=== PATIENT | female | born 1995 | race Caucasian/White ===

== ENCOUNTER 2016-10-10 10:28 | Emergency (ER) | payer BC, OTHER ==
[~2016-10-10] VITALS: Ht 160 cm; Wt 53.2 kg
[2016-10-10] MEDS ORDERED: NS 1,000 ML IV ONE (11:30)
[2016-10-10] MEDS ORDERED: KETOROLAC 30 MG/ML VIAL (J1885) IV ONE (11:30)
[2016-10-10 11:49] LABS: CONTROL LINE UCG INT CTR LINE PRESENT
[2016-10-10 11:49] LABS: BASO % 0.4 % (0.0-1.0); EOS % 0.9 % (0.0-3.0); LARGE UNSTAINED CELL # 0.1 K/mm3 (0.0-0.4); LARGE UNSTAINED CELL % 2.3 % (0.0-4.0); LYMPH # 1.8 K/mm3 (1.5-6.5); LYMPH % 34.5 % (24.0-44.0); MEAN CORPUSCULAR HEMOGLOBIN 30.7 pg (27.0-33.0); MEAN CORPUSCULAR HGB CONC 35.1 g/dl (32.0-36.5); MEAN CORPUSCULAR VOLUME 87.4 fl (80.0-96.0); MONO # 0.4 K/mm3 (0.0-0.8); MONO % 6.9 % (0.0-5.0); NEUTROPHILS # 2.9 K/mm3 (1.8-7.7); PLATELET COUNT, AUTOMATED 270 k/mm3 (150-450); RED CELL DISTRIBUTION WIDTH 12.3 % (11.5-14.5); WHITE BLOOD COUNT 5.3 K/mm3 (4.0-10.0)
[2016-10-10 12:14] LABS: ANION GAP 6 MEQ/L (8-16); BLOOD UREA NITROGEN 13 MG/DL (7-18); CALCIUM LEVEL 9.1 MG/DL (8.5-10.1); CARBON DIOXIDE LEVEL 27 MEQ/L (21-32); CHLORIDE LEVEL 108 MEQ/L (98-107); CREATININE FOR GFR 0.75 MG/DL (0.55-1.02); GLUCOSE, FASTING 80 MG/DL (70-105); SODIUM LEVEL 141 MEQ/L (136-145)
--- NOTE | 2016-10-10 12:19 | REP ---
Clinical: Bilateral flank pain. Comparison: None. Findings: Evaluation is limited by paucity of intraperitoneal fat and lack of contrast. The kidneys demonstrate mild medullary nephrocalcinosis and 2 mm nonobstructing left renal calculus as well as possible forming calculi in the right renal pelvis. There is no perinephric stranding, hydroureteronephrosis or definite obstructing ureteral calculi. However, a small 1 mm calcification in the region of the presumed left ureterovesicle junction (image 122) may represent ureteral calculus versus phlebolith. Correlation with urinalysis and physical examination recommended. The bladder is collapsed and otherwise normal. Liver, spleen, pancreas, and bilateral adrenal glands are normal. Layering sludge/gravel in the gallbladder cannot be excluded without CT evidence for acute cholecystitis. The enteric system is without obstruction or obvious acute inflammatory process. The appendix is identified in the right lower quadrant and measures 7 mm maximal diameter along with small appendicolith. Correlation is recommended to exclude early acute appendicitis. Pelvis demonstrates collapsed bladder as described above and age-appropriate uterus/adnexa. No significant pelvic fluid or ascites. No free air. No obvious adenopathy. Abdominal aorta without aneurysm. Musculoskeletal structures are intact. Impression: 1. Kidneys demonstrate mild medullary nephrocalcinosis and 2 mm nonobstructing left renal calculus. A punctate 1 mm calculus in the left ureterovesical junction versus phlebolith cannot be differentiated and may warrant physical examination and correlation with urinalysis. 2. The appendix is borderline dilated and includes small appendicolith. Findings are nonspecific and require correlation to exclude early appendicitis. Signed by Flavio Ward MD 10/10/2016 12:10 P
[2016-10-10 13:31] VITALS: BP 88/55
[2016-10-10] MEDS ORDERED: PYRI1TAB5 PO (13:49)
[2016-10-10] MEDS ORDERED: FLOM5CAP PO (13:49)
[2016-10-10] MEDS ORDERED: KETO10TAB PO (13:49)
[2016-10-10] MEDS ORDERED: KEFL500C17 PO (13:49)
== END 2016-10-10 14:03 | disposition home or self-care (01) ==
LOC: M ED 10:28
DX: K35.3 Acute appendicitis with localized peritonitis (principal)
CPT/HCPCS: 74176; 80048; 81001; 84703; 85025; 87086; 96374; 99283; J1885

== ENCOUNTER → 2016-10-19 | Outpatient (REF) | payer BC ==
[~2016-10-19] MED LIST: FLOM5CAP PO; KEFL500C17 PO; KETO10TAB PO; PYRI1TAB5 PO
== END ==
LOC: M SMT 12:58
PROVIDERS: ATTEND Nurse Practitioner Women's Health
DX: N20.0 Calculus of kidney (principal)

== ENCOUNTER → 2016-10-21 | Outpatient (CLI) | payer BC ==
--- NOTE | 2016-10-21 08:44 | REP ---
Abdominal right upper quadrant ultrasound: Comparison is the CT of the abdomen pelvis dated 10/10/2016. There is a small volume of biliary sludge in the gallbladder. There is no cholelithiasis, gallbladder wall thickening or pericholecystic fluid. There is mild tenderness to transducer pressure. There is no intrahepatic or extrahepatic biliary duct dilatation. The common duct measures 3.1 mm in diameter. The hepatic parenchyma is homogeneous and unremarkable. The visualized portion of the pancreatic head is unremarkable. The body and tail are obscured by bowel gas. There are no right renal calculi identified by ultrasound. There is no hydronephrosis. There are no right renal masses or cysts. Right kidney is normal size measuring 10.4 cm craniocaudad length. Impression: Biliary sludge in the gallbladder. No cholelithiasis or biliary duct dilatation. No right renal calculi are identified by ultrasound. There is no hydronephrosis. There is mild tenderness to transducer pressure. Signed by Alfonzo Kendall MD 10/21/2016 08:36 A
== END ==
LOC: M RAD 07:14
PROVIDERS: ATTEND Nurse Practitioner Women's Health
DX: K82.9 Disease of gallbladder, unspecified (principal); R10.11 Right upper quadrant pain; R11.0 Nausea

== ENCOUNTER → 2016-11-15 | Outpatient (CLI) | payer BC ==
--- NOTE | 2016-11-15 10:34 | REP ---
HIDA SCAN WITH GALLBLADDER EJECTION FRACTION: Following the intravenous administration of 6.6 mCi of technetium-99m mebrofenin, multiple images of the right upper quadrant are performed every 5 minutes for a period of 1 hour. Gallbladder is visualized at 10 minutes post injection and there is biliary to bowel transit at 15 minutes post injection with no scintigraphic evidence of cholecystitis. At the 1 hour donell 8 ounces of Ensure Enlive was ingested and further imaging performed for 1 hour. Gallbladder activity is measured and the gallbladder ejection fraction is calculated to be 65% which is normal. IMPRESSION: Normal gallbladder ejection fraction. Signed by Alfonzo Sky MD 11/15/2016 12:52 P
== END ==
LOC: M RAD 07:25
PROVIDERS: ATTEND Surgery
DX: R10.13 Epigastric pain (principal)
CPT/HCPCS: 78227; A9537; J2805

== ENCOUNTER 2017-10-07 21:05 | Emergency (ER) | payer BC, SELFPAY ==
[2017-10-07 22:09] LABS: KETONE, URINE AUTO RFX NEGATIVE (NEGATIVE); LEUKOCYTE ESTERASE UR AUTO RFX NEGATIVE (NEGATIVE); MUCUS, URINE RFX LARGE (NEGATIVE); NITRITE, URINE AUTO RFX NEGATIVE (NEGATIVE); RBC, URINE AUTO RFX 2 /HPF (0-3); SPECIFIC GRAVITY UR AUTO RFX 1.016 (1.002-1.035); SQUAM EPITHELIAL CELL UR AURFX 1 /HPF (0-6); WBC, URINE AUTO RFX 2 /HPF (0-3)
[2017-10-07] MEDS: ONDANSETRON 4 MG ORAL DISINTEGRATING TAB (Q0162 PER 1MG) PO (23:30)
[2017-10-07] MEDS: KETOROLAC TROMETHAMINE 10 MG TAB PO (23:30)
[2017-10-08 00:32] LABS: BASO % 0.6 % (0.0-1.0); EOS # 0.1 10^3/uL (0.0-0.50); HEMATOCRIT 42.1 % (36.0-47.0); HEMOGLOBIN 14.4 g/dl (12.0-15.5); IMMATURE GRANULOCYTE % 0.3 % (0-3.0); LYMPH # 2.9 10^3/uL (1.5-6.5); MEAN CORPUSCULAR HEMOGLOBIN 29.8 pg (27.0-33.0); MEAN CORPUSCULAR HGB CONC 34.2 g/dl (32.0-36.5); MONO # 0.7 10^3/uL (0.0-0.8); MONO % 10.8 % (0.0-5.0); NEUTROPHILS % 44.3 % (36.0-66.0); PLATELET COUNT, AUTOMATED 304 10^3/uL (150-450); RED BLOOD COUNT 4.84 10^6/uL (4.00-5.40); RED CELL DISTRIBUTION WIDTH 12.3 % (11.5-14.5); WHITE BLOOD COUNT 6.7 10^3/uL (4.0-10.0)
[2017-10-08 01:04] LABS: ALKALINE PHOSPHATASE 72 U/L (45-117); ALT/SGPT 20 U/L (12-78); ANION GAP 7 MEQ/L (8-16); AST/SGOT 14 U/L (7-37); BILIRUBIN,DIRECT 0.2 MG/DL (0.0-0.2); BILIRUBIN,TOTAL 0.7 MG/DL (0.2-1.0); BLOOD UREA NITROGEN 10 MG/DL (7-18); CALCIUM LEVEL 9.3 MG/DL (8.5-10.1); CARBON DIOXIDE LEVEL 28 MEQ/L (21-32); CHLORIDE LEVEL 108 MEQ/L (98-107); CREATININE FOR GFR 0.82 MG/DL (0.55-1.30); GLOMERULAR FILTRATION RATE > 60.0 (>60); GLUCOSE, FASTING 83 MG/DL (70-100); POTASSIUM SERUM 3.8 MEQ/L (3.5-5.1); SODIUM LEVEL 143 MEQ/L (136-145); TOTAL PROTEIN 7.7 GM/DL (6.4-8.2)
[2017-10-08 01:05] LABS: ALBUMIN 4.6 GM/DL (3.2-5.2); ALBUMIN/GLOBULIN RATIO 1.48 (1.00-1.93)
== END 2017-10-08 01:47 | disposition home or self-care (01) ==
LOC: M ED 10-08 01:47
DX: M54.9 Dorsalgia, unspecified (principal); N20.0 Calculus of kidney; R51 Headache; J45.909 Unspecified asthma, uncomplicated; Z87.442 Personal history of urinary calculi; Z79.3 Long term (current) use of hormonal contraceptives; F12.10 Cannabis abuse, uncomplicated
CPT/HCPCS: Q0162

== ENCOUNTER → 2018-03-19 | Outpatient (CLI) | payer BC ==
[~2018-03-19] MED LIST changes: +DEPO150I IM; +FLOM0.4C39 PO; -FLOM5CAP PO
--- NOTE | 2018-03-19 12:31 | REP ---
REASON: Pain after trauma. COMPARISON: None. FINDINGS: No acute fracture or destructive osseous lesion. Electronically Signed by Philip Hogue DO 03/19/2018 12:20 P
--- NOTE | 2018-03-19 12:31 | REP ---
REASON: Pain after trauma. COMPARISON: None. FINDINGS: Five views of the lumbosacral spine show no acute fracture, dislocation or subluxation. The intervertebral disc spaces are symmetric and well maintained. There is no spondylolysis or spondylolisthesis. The pedicles are intact bilaterally and there is no destructive osseous lesion. IMPRESSION: Unremarkable lumbosacral spine series. Electronically Signed by Philip Hogue DO 03/19/2018 12:20 P
== END ==
LOC: M WUC 10:40
PROVIDERS: ATTEND Physician Assistant
DX: S30.0XXA Contusion of lower back and pelvis, initial encounter (principal); X58.XXXA Exposure to other specified factors, initial encounter; Y92.9 Unspecified place or not applicable

== ENCOUNTER → 2018-05-11 | Outpatient (REF) | payer BC ==
[2018-05-11 14:58] LABS: CHLAMYDIA DNA AMPLIFICATION NEGATIVE (NEGATIVE); GC DNA AMPLIFICATION NEGATIVE (NEGATIVE)
[2018-05-12 13:51] LABS: HIV 1&2 SCREEN CENTAUR NEGATIVE (NEGATIVE)
[2018-06-15 15:52] LABS: HPV HYBRID CAPTURE II Positive (Negative)
== END ==
LOC: M SFHCWAGY 08:42
PROVIDERS: ATTEND Nurse Practitioner Women's Health
DX: Z11.3 Encounter for screening for infections with a predominantly sexual mode of transmission (principal); Z11.4 Encounter for screening for human immunodeficiency virus [HIV]; Z12.4 Encounter for screening for malignant neoplasm of cervix
CPT/HCPCS: 36415; 86780; 87389; 87491; 87591; 87624; G0123

== ENCOUNTER → 2018-06-12 | Outpatient (REF) | payer BC ==
[2018-06-12 17:41] LABS: CHLAMYDIA DNA AMPLIFICATION NEGATIVE (NEGATIVE); GC DNA AMPLIFICATION NEGATIVE (NEGATIVE)
== END ==
LOC: M SFHCWAGY 13:47
PROVIDERS: ATTEND Nurse Practitioner Women's Health
DX: R87.611 Atypical squamous cells cannot exclude high grade squamous intraepithelial lesion on cytologic smear of cervix (ASC-H) (principal); Z11.3 Encounter for screening for infections with a predominantly sexual mode of transmission

== ENCOUNTER 2018-07-05 14:25 | Emergency (ER) | payer OTHER, BC ==
[~2018-07-05] VITALS: Ht 162.6 cm; Wt 55.0 kg
[2018-07-05 16:29] VITALS: BP 111/68
--- NOTE | 2018-07-10 12:05 | REP ---
Head CT without contrast: Repeat dictation. History: Headache. Preliminary report is provided at the time examination by Dr. Greene. Comparison study: Comparison brain MRI study is from February 09, 2013. CT findings: Bone window settings demonstrate an intact bony calvarium. There is no evidence of skull fracture or incidental bony calvarial lesion. The visualized paranasal sinuses appear clear. No intraorbital abnormality is seen. On soft tissue window setting images; the lateral, third, and fourth ventricles are normal in size and position. Sky-white differentiation pattern is normal above and below the tentorium. There are is no evidence of intracranial hemorrhage. No mass, edema, infarction, or midline shift is seen. No extra-axial fluid collection is appreciated. Impression: Negative noncontrast head CT. Electronically Signed by Rosalio Jimenez MD 07/10/2018 11:55 A
== END 2018-07-05 16:33 | disposition home or self-care (01) ==
LOC: M ED 14:25
DX: S09.90XA Unspecified injury of head, initial encounter (principal); W22.09XA Striking against other stationary object, initial encounter; Y92.59 Other trade areas as the place of occurrence of the external cause; Y99.0 Civilian activity done for income or pay; Z79.3 Long term (current) use of hormonal contraceptives

== ENCOUNTER → 2018-07-05 | Outpatient (REF) | payer BC ==
[2018-07-05 18:24] LABS: APPEARANCE, URINE CLEAR (CLEAR); BACTERIA, URINE AUTO NEGATIVE (NEGATIVE); BILIRUBIN, URINE AUTO NEGATIVE (NEGATIVE); BLOOD, URINE BLOOD NEGATIVE (NEGATIVE); COLOR, URINE YELLOW (YELLOW); GLUCOSE, URINE (UA) AUTO NEGATIVE (NEGATIVE); KETONE, URINE AUTO NEGATIVE (NEGATIVE); LEUKOCYTE ESTERASE, URINE AUTO NEGATIVE (NEGATIVE); MUCUS, URINE SMALL (NEGATIVE); NITRITE, URINE AUTO NEGATIVE (NEGATIVE); PROTEIN, URINE AUTO NEGATIVE (NEGATIVE); RBC, URINE AUTO 2 /HPF (0-3); SPECIFIC GRAVITY URINE AUTO 1.017 (1.002-1.035); SQUAMOUS EPITHELIAL CELL UR AU 4 /HPF (0-6); UROBILINOGEN, URINE AUTO 0.2 mg/dL (0.0-2.0); WBC, URINE AUTO 1 /HPF (0-3)
== END ==
LOC: M LAB REF 16:42
PROVIDERS: ATTEND Nurse Practitioner Women's Health
DX: N94.12 Deep dyspareunia (principal)

== ENCOUNTER → 2018-08-02 | Outpatient (CLI) | payer BC ==
[~2018-08-02] MED LIST changes: +MYRB25TA PO
--- NOTE | 2018-08-03 02:28 | REP ---
Clinical: Pelvic/perineal pain and dyspareunia . Technique: Transabdominal pelvic ultrasound followed by transvaginal examination for better evaluation of the endometrium and adnexa with color Doppler evaluation of the ovaries. Findings: Bladder is unremarkable and measures 5.6 x 2.2 x 7.5 cm . Heterogeneous retroverted uterus measures 6.7 x 3.6 x 4.2 centimeters. The endometrial complex measures 6.8 mm thickness and a small amount of endocervical fluid is noted. No discrete uterine or endometrial abnormalities are appreciated. Bilateral ovaries are normal in appearance and vascularity without evidence for torsion. Right ovary measures 3.7 x 2.5 x 1.8 cm ; R I = 0.52 . Left ovary measures 3.0 x 1.6 x 2.7 cm ; R I = 0.61 . Trace free fluid is nonspecific and likely physiologic. No pelvic mass lesion identified. . Impression: 1. Small amount of endocervical fluid and pelvic free fluid are nonspecific and likely physiologic. Electronically Signed by Flavio Ward MD 08/03/2018 02:20 A
== END ==
LOC: M RAD 11:33
PROVIDERS: ATTEND Nurse Practitioner Women's Health
DX: R10.2 Pelvic and perineal pain (principal); N94.12 Deep dyspareunia

== ENCOUNTER 2018-08-10 08:19 | Day surgery (SDC) | payer BC ==
[~2018-08-10] VITALS: Ht 160 cm; Wt 53.1 kg
[~2018-08-10 08:19] MED LIST changes: +LIDOCAINE 1% MDV 20ML VIAL SQ PRN; +LR 1,000 ML IV ONE; +ceFAZolin SOD 1 GM in D5W MINI-BAG PLUS 50 ML IV ONE
[2018-08-10 09:15] LABS: HCG, SERUM QUALITATIVE NEGATIVE (NEGATIVE)
[2018-08-10] MEDS ORDERED: PROPOFOL 200 MG/20 ML VIAL As Ordered ONE ×2 (10:11→11:52)
[2018-08-10] MEDS ORDERED: LIDOCAINE 2% INJ 100 MG/5 ML SDV (FOR ANES.) As Ordered ONE (10:11)
[2018-08-10] MEDS ORDERED: MIDAZOLAM INJ 2 MG/2 ML VIAL (J2250) As Ordered ONE (10:11)
[2018-08-10] MEDS ORDERED: fentaNYL 100 MCG/2 ML INJECTION (J3010) As Ordered ONE (10:11)
[2018-08-10] MEDS ORDERED: SCOPOLAMINE 1MG TRANSDERMAL PATCH As Ordered ONE (10:19)
[2018-08-10] MEDS ORDERED: SCOPOLAMINE 1MG TRANSDERMAL PATCH TOP ONE (10:30)
[2018-08-10] MEDS ORDERED: dexameTHASONE 4 MG/ML 1ML VIAL (J1100) As Ordered ONE (10:38)
[2018-08-10] MEDS ORDERED: ONDANSETRON 4MG/2ML VIAL (J2405) As Ordered ONE (10:38)
[2018-08-10] MEDS ORDERED: NORCO, ANEXSIA 5/325MG TABLET (HYDROcodone/ACETAMINOPHEN) As Ordered ONE (13:34)
--- NOTE | 2018-08-10 13:40 | RO ---
DATE OF PROCEDURE: 08/10/2018 PREOPERATIVE DIAGNOSIS/INDICATION FOR SURGERY: Pain, incontinence, small bladder. 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 PROCEDURE: Cystourethroscopy with hydrodistention. SURGEON: Karen Hernandez MD PODIATRY ASSISTANT: ANESTHESIA: Monitored anesthesia care (MAC). ESTIMATED BLOOD LOSS: None. BRIEF DESCRIPTION OF PROCEDURE AND FINDINGS: Kimberlee was brought to the operating room where sufficient MAC anesthesia was given. She was prepped, draped and positioned in the usual sterile fashion with the cystoscope placed and even before we had used any fluid at all, the first pictures we had not distended the patient, we had not given her any fluid yet, and there was lacy hypervascularity of the bladder and visual appearance consistent with lack of the glycosaminoglycan (GAG) layer. I did not see any Hunner's lesions, but there is really no where on her bladder that does not have this hypervascularity. We went ahead and placed some fluid, and were hydrodistending and when we got to 400 mL, she stopped filling with the gravity fed hydrodistention, and as you can see in the operative pictures there is evidence of some scar tissue in the outer layers of the bladder at 400 mL. She did have normal jets of urine. This is not a surprise in this otherwise healthy 23-year-old, but we went ahead and decided to do 4 minutes of distention at 400 mL and at approximately 2-1/2 minutes, a little bit over into this, the patient had detrusor overactivity and was leaking wholesale around the scope and we did fill a little bit more after she had emptied with that to try to counter that loss and try to maintain some hydrodistention for some benefit for the patient. After the 4 minutes passed we emptied the bladder. As expected she had microhemorrhages with the distention, but nothing untoward, and the procedure was then ended. ESTIMATED BLOOD LOSS FOR PROCEDURES: Really nothing to measure. FLUID REPLACEMENT: Crystalloid. COMPLICATIONS: None. CONDITION AND DISPOSITION: Kimberlee tolerated the procedure well and was recovering in the recovery room in good condition.
[2018-08-10] MEDS ORDERED: ONDANSETRON 4MG/2ML VIAL (J2405) IV PRN (14:00)
[2018-08-10] MEDS ORDERED: NORCO, ANEXSIA 5/325MG TABLET (HYDROcodone/ACETAMINOPHEN) PO PRN (14:00)
[2018-08-10] MEDS ORDERED: LR 1,000 ML IV SCH (14:00)
[2018-08-10 14:10] VITALS: BP 102/60
== END 2018-08-10 14:20 | disposition home or self-care (01) ==
LOC: M SDC 08:19
PROVIDERS: ATTEND Obstetrics & Gynecology
DX: N30.10 Interstitial cystitis (chronic) without hematuria (principal); N32.81 Overactive bladder; F41.9 Anxiety disorder, unspecified; F32.9 Major depressive disorder, single episode, unspecified; J45.909 Unspecified asthma, uncomplicated; Z79.899 Other long term (current) drug therapy
CPT/HCPCS: 36415; 52260; 84703; J0690; J1100; J2250; J2405; J3010

== ENCOUNTER 2018-11-02 05:37 | Day surgery (SDC) | payer BC ==
[~2018-11-02] VITALS: Ht 162.6 cm; Wt 58.9 kg
[~2018-11-02 05:37] MED LIST changes: -LIDOCAINE 1% MDV 20ML VIAL SQ PRN; -LR 1,000 ML IV ONE; +MIRT1TAB16 PO; -ceFAZolin SOD 1 GM in D5W MINI-BAG PLUS 50 ML IV ONE
[2018-11-02] MEDS ORDERED: LR 1,000 ML IV ONE (06:00)
[2018-11-02] MEDS ORDERED: LIDOCAINE 1% MDV 20ML VIAL SQ PRN (06:00)
[2018-11-02 06:09] LABS: URINE PREG TEST NEGATIVE (NEGATIVE)
[2018-11-02] MEDS ORDERED: ePHEDrine SULFATE 25 MG/5 ML(5MG/ML) SYRINGE As Ordered ONE (07:51)
[2018-11-02] MEDS ORDERED: LIDOCAINE 2% INJ 100 MG/5 ML SDV (FOR ANES.) As Ordered ONE (07:51)
[2018-11-02] MEDS ORDERED: PROPOFOL 200 MG/20 ML VIAL As Ordered ONE (07:51)
[2018-11-02] MEDS ORDERED: fentaNYL 250 MCG/5 ML INJECTION (J3010) As Ordered ONE (07:51)
[2018-11-02] MEDS ORDERED: ROCURONIUM BROMIDE 50 MG/5 ML VIAL As Ordered ONE (07:51)
[2018-11-02] MEDS ORDERED: ACETAMINOPHEN 1000MG 100ML IV BTL (OFIRMEV) (J0131 PER 10MG) As Ordered ONE (07:51)
[2018-11-02] MEDS ORDERED: dexameTHASONE 4 MG/ML 1ML VIAL (J1100) As Ordered ONE (07:51)
[2018-11-02] MEDS ORDERED: ONDANSETRON 4MG/2ML VIAL (J2405) As Ordered ONE (07:51)
[2018-11-02] MEDS ORDERED: MIDAZOLAM INJ 2 MG/2 ML VIAL (J2250) As Ordered ONE (07:51)
[2018-11-02] MEDS ORDERED: KETOROLAC 60 MG/2 ML VIAL (J1885) As Ordered ONE (07:51)
[2018-11-02] MEDS ORDERED: SUGAMMADEX SODIUM 500 MG/5 ML VIAL (BRIDION) As Ordered ONE (07:57)
[2018-11-02] MEDS ORDERED: PHENYLephrine HCL 500 MCG/5 ML (100MCG/ML) SYRINGE (J2370) As Ordered ONE (08:04)
--- NOTE | 2018-11-02 09:09 | RO ---
DATE OF PROCEDURE: 11/02/2018 PREOPERATIVE DIAGNOSIS/INDICATION FOR SURGERY: Pain. POSTOPERATIVE DIAGNOSIS: Pain. PROCEDURE: Diagnostic laparoscopy. FINDINGS: Normal pelvis and normal abdomen. SURGEON: Karen Hernandez MD DORMITORY SUPERVISOR: None. ANESTHESIA: General endotracheal anesthesia. BRIEF DESCRIPTION OF PROCEDURE AND FINDINGS: Kimberlee was brought to the operating room where sufficient general endotracheal anesthesia was induced and she was prepped, draped and positioned in the usual sterile fashion. A uterine manipulator was placed after the uterus was sounded to 8. It was kind of mid to retroverted. After the bladder had been emptied and the uterine manipulator placed attention was turned to the abdomen. A transverse semilunar incision was made inferior to the umbilicus. Sharp and blunt dissection was continued through subcutaneous tissue to the level of the rectus fascia which was elevated with Marck clamps, carefully transversely incised and secured with #0 Vicryl retention sutures. The peritoneum was then entered under direct visualization in an open laparoscopic technique and the Negro cannula was placed and secured in placed with a #0 Vicryl retention sutures. CO2 insufflation was then begun. After adequate CO2 insufflation, the peritoneal cavity was visualized. There were normal shiny peritoneal surfaces throughout. There was no excrescence, ascites nor exudate. There were no endometrial implants. There was no scar tissue. There was a normal appendix. There were normal ovaries. There were normal tubes. The peritoneal surface was shiny and mobile and would slide over the underlying tissues without resistance. There was no evidence of inflammation nor adhesion. Upper abdomen was similarly reassuring with a normal liver and normal inferior aspect of the stomach noted. The uterus was manipulated. The bladder was observed. The posterior cul-de-sac was carefully evaluated. Smooth manipulator was used to manipulate the ovaries to so the ovarian fossa. There was no evidence of adhesion or endometriosis of any sort, neither blue, black nor red endometriosis, nor was there any evidence of adhesion. After a very careful survey in this patient with chronic pain, an abjectly normal pelvis were noted, and the procedure was ended. CO2 was allowed to escape the abdomen. Trocar was then removed. #0 Vicryl retention sutures were used to close the fascial layer and #3-0 Vicryl was used to close the skin in a subcuticular stitch with good approximation and hemostasis of both layers. Dry sterile dressing was then applied and uterine manipulator and tenaculum were removed and the procedure was then ended. ESTIMATED BLOOD LOSS FOR PROCEDURE: 2 mL. FLUID REPLACEMENT: Crystalloid. COMPLICATIONS: None. CONDITION AND DISPOSITION: Kimberlee tolerated the procedure well and was recovering in the recovery room in good condition.
[2018-11-02] MEDS ORDERED: PROMETHAZINE INJ 25 MG/ML VIAL (J2550) IV PRN (09:15)
[2018-11-02] MEDS ORDERED: IBUPROFEN 600 MG TAB PO PRN (09:15)
[2018-11-02] MEDS ORDERED: NORCO, ANEXSIA 5/325MG TABLET (HYDROcodone/ACETAMINOPHEN) PO PRN (09:15)
[2018-11-02] MEDS ORDERED: LR 1,000 ML IV SCH ×2 (09:15)
[2018-11-02] MEDS ORDERED: fentaNYL 100 MCG/2 ML INJECTION (J3010) IV PRN (09:15)
[2018-11-02] MEDS ORDERED: oxyCODONE 5MG TAB PO PRN (09:15)
[2018-11-02 09:45] VITALS: BP 111/74
== END 2018-11-02 10:12 | disposition home or self-care (01) ==
LOC: M SDC 05:37
PROVIDERS: ATTEND Obstetrics & Gynecology
DX: R10.2 Pelvic and perineal pain (principal); J45.909 Unspecified asthma, uncomplicated; G43.909 Migraine, unspecified, not intractable, without status migrainosus; F32.9 Major depressive disorder, single episode, unspecified; Z79.899 Other long term (current) drug therapy
CPT/HCPCS: 49320; 84703; J0131; J1100; J1885; J2250; J2370; J2405; J3010

== ENCOUNTER → 2018-12-18 | Outpatient (REF) | payer BC ==
[2018-12-23 08:40] LABS: HPV HYBRID CAPTURE II HI RISK Positive (Negative); HPV HYBRID CAPTURE II LOW RISK Positive (Negative)
== END ==
LOC: M SFHCWAGY 11:38
PROVIDERS: ATTEND Nurse Practitioner Women's Health
DX: R87.613 High grade squamous intraepithelial lesion on cytologic smear of cervix (HGSIL) (principal)

== ENCOUNTER → 2018-12-19 | Outpatient (REF) | payer BC | LOC: M SFHCWAGY 15:20 | PROVIDERS: ATTEND Nurse Practitioner Women's Health | DX: R87.613 High grade squamous intraepithelial lesion on cytologic smear of cervix (HGSIL) (principal); Z53.9 Procedure and treatment not carried out, unspecified reason ==

== ENCOUNTER → 2019-10-01 | Outpatient (REF) | payer BC | LOC: M SFHCWAGY 16:59 | PROVIDERS: ATTEND Nurse Practitioner Women's Health | DX: Z12.4 Encounter for screening for malignant neoplasm of cervix (principal); R87.613 High grade squamous intraepithelial lesion on cytologic smear of cervix (HGSIL) ==

== ENCOUNTER → 2020-10-11 | Outpatient (CLI) | payer BC ==
[2020-10-11 12:35] LABS: FREE T4 1.15 NG/DL (0.76-1.46); THYROID STIMULATING HORMONE 0.242 uIU/ML (0.358-3.740)
== END ==
LOC: M LAB 11:30
PROVIDERS: ATTEND Student in an Organized Health Care Education/Training Program
DX: R68.89 Other general symptoms and signs (principal)

== ENCOUNTER → 2020-10-30 | Outpatient (REF) | payer BC ==
[~2020-10-30] MED LIST changes: +AMIT50TA; +CYCL-707; +GABA-282; +MELO15TA28; +ONDA4TAB6 PO; +TOPI50TA9
[2020-10-30 14:50] LABS: GC DNA AMPLIFICATION NEGATIVE (NEGATIVE)
== END ==
LOC: M LAB REF 13:07
PROVIDERS: ATTEND Nurse Practitioner Women's Health
DX: Z11.3 Encounter for screening for infections with a predominantly sexual mode of transmission (principal)

== ENCOUNTER 2020-11-02 13:03 | Emergency (ER) | payer BC ==
[~2020-11-02] VITALS: Ht 162.6 cm; Wt 56.6 kg
[~2020-11-02 13:03] MED LIST changes: -AMIT50TA; -CYCL-707; -GABA-282; -MELO15TA28; -ONDA4TAB6 PO; -TOPI50TA9
[2020-11-02 13:04] VITALS: BP 124/88
[2020-11-02] MEDS ORDERED: MELO15TA28 (13:28)
[2020-11-02] MEDS ORDERED: GABA-282 (13:28)
[2020-11-02] MEDS ORDERED: TOPI50TA9 (13:28)
[2020-11-02] MEDS ORDERED: CYCL-707 (13:28)
[2020-11-02] MEDS ORDERED: AMIT50TA (13:28)
[2020-11-02 14:18] LABS: BASO % 0.2 % (0.0-1.0); EOS # 0.1 10^3/uL (0.0-0.5); EOS % 0.6 % (0.0-3.0); HEMATOCRIT 37.6 % (36.0-47.0); HEMOGLOBIN 12.9 g/dl (12.0-15.5); LYMPH # 1.5 10^3/uL (1.5-5.0); LYMPH % 11.7 % (24.0-44.0); MEAN CORPUSCULAR HEMOGLOBIN 29.1 pg (27.0-33.0); MEAN CORPUSCULAR HGB CONC 34.3 g/dl (32.0-36.5); MEAN CORPUSCULAR VOLUME 84.9 fl (80.0-96.0); MONO # 0.9 10^3/uL (0.0-0.8); MONO % 7.4 % (2.0-8.0); NEUTROPHILS # 10.1 10^3/uL (1.5-8.5); NEUTROPHILS % 79.7 % (36.0-66.0); PLATELET COUNT, AUTOMATED 318 10^3/uL (150-450); RED BLOOD COUNT 4.43 10^6/uL (4.00-5.40); WHITE BLOOD COUNT 12.6 10^3/uL (4.0-10.0)
[2020-11-02 14:43] LABS: HCG, SERUM QUALITATIVE NEGATIVE (NEGATIVE)
[2020-11-02 14:45] LABS: ALBUMIN 4.3 GM/DL (3.2-5.2); ALT/SGPT 21 U/L (12-78); BILIRUBIN,DIRECT 0.2 MG/DL (0.0-0.2); BILIRUBIN,TOTAL 0.7 MG/DL (0.2-1.0); BLOOD UREA NITROGEN 19 MG/DL (7-18); CALCIUM LEVEL 9.1 MG/DL (8.5-10.1); CARBON DIOXIDE LEVEL 21 MEQ/L (21-32); CHLORIDE LEVEL 115 MEQ/L (98-107); CREATININE FOR GFR 1.22 MG/DL (0.55-1.30); GLOMERULAR FILTRATION RATE 57.6 (>60); GLUCOSE, FASTING 80 MG/DL (70-100); LIPASE 150 U/L (73-393); POTASSIUM SERUM 3.9 MEQ/L (3.5-5.1); SODIUM LEVEL 144 MEQ/L (136-145); TOTAL PROTEIN 7.3 GM/DL (6.4-8.2)
[2020-11-02] MEDS ORDERED: NS 1,000 ML IV ONE (17:50)
[2020-11-02] MEDS ORDERED: KETOROLAC 30 MG/ML 1ML VIAL IV ONE (17:50)
--- NOTE | 2020-11-02 18:40 | REP ---
INDICATION: left flank pain. COMPARISON: None. TECHNIQUE: Multiplanar ultrasound imaging of the kidneys and urinary bladder was performed. FINDINGS: The right kidney measures 9.9 x 5.1 x 3.5 cm. The renal parenchymal echogenicity is normal. There are no focal abnormalities. There is no hydronephrosis. The left kidney measures 10.3 x 6.0 x 4.9 cm. The renal parenchymal echogenicity is normal. There are no focal abnormalities. There is no hydronephrosis. The urinary bladder is incompletely distended. IMPRESSION: Normal ultrasound evaluation of the kidneys. The urinary bladder is incompletely distended. <Electronically signed by Jesus Marie > 11/02/20 [id number]
--- NOTE | 2020-11-02 21:10 | REPVR ---
PROCEDURE INFORMATION: Exam: CT Abdomen And Pelvis Without Contrast Exam date and time: 11/02/2020 7:51 PM Age: 25 years old Clinical indication: Other: Left flank pain, hematuria TECHNIQUE: Imaging protocol: Computed tomography of the abdomen and pelvis without contrast. Radiation optimization: All CT scans at this facility use at least one of these dose optimization techniques: automated exposure control; mA and/or kV adjustment per patient size (includes targeted exams where dose is matched to clinical indication); or iterative reconstruction. COMPARISON: CT ABD PELVIS W/O CONTRAST 10/07/2017 11:21 PM FINDINGS: Liver: Normal. No mass. Gallbladder and bile ducts: Normal. No calcified stones. No ductal dilation. Pancreas: Normal. No ductal dilation. Spleen: Normal. No splenomegaly. Adrenal glands: Normal. No mass. Kidneys and ureters: Dense bilateral renal papillae with minimal nonobstructing right renal calculus in the mid pole. Slight left perinephric edema and renal sinus edema with mild left hydronephrosis and hydroureter with periureteral edema which extends to the left UVJ with a 1-2 mm distal UVJ calculus. Stomach and bowel: Unremarkable. No obstruction. No mucosal thickening. Appendix: A normal appendix is seen measuring 7 mm with no wall thickening or surrounding edema. Intraperitoneal space: Unremarkable. No free air. No significant fluid collection. Vasculature: Unremarkable. No abdominal aortic aneurysm. Lymph nodes: Unremarkable. No enlarged lymph nodes. Urinary bladder: Unremarkable as visualized. Reproductive: The ovaries appear normal and symmetric. Retroverted uterus is noted. Bones/joints: Unremarkable. No acute fracture. Soft tissues: Unremarkable. IMPRESSION: 1. 1-2 mm distal left UVJ calculus with obstructive uropathy of the left upper tract. 2. Dense bilateral renal papillae which may be seen with a predisposition for stone formation. A minimal nonobstructing right renal calculus is noted. Electronically signed by: Henry David On 11/02/2020 21:09:20 PM
[2020-11-02] MEDS ORDERED: FLOM0.4C39 PO (21:41)
[2020-11-02] MEDS ORDERED: KETO10TAB PO (21:41)
[2020-11-02] MEDS ORDERED: ONDA4TAB6 PO (21:41)
== END 2020-11-02 22:13 | disposition home or self-care (01) ==
LOC: M ED 18:25
DX: N20.1 Calculus of ureter (principal); Z79.3 Long term (current) use of hormonal contraceptives
CPT/HCPCS: 74176; 76775; 80048; 80076; 81001; 83690; 84703; 85025; 96361; 96374; 99283; J1885

== ENCOUNTER → 2020-11-14 | Outpatient (REF) | payer BC ==
[~2020-11-14] MED LIST changes: +AMIT50TA; +CYCL-707; +GABA-282; +MELO15TA28; +ONDA4TAB6 PO; +TOPI50TA9
[2020-11-14 14:05] LABS: APPEARANCE, URINE TURBID (CLEAR); BACTERIA, URINE AUTO 1+ (NEGATIVE); BILIRUBIN, URINE AUTO NEGATIVE (NEGATIVE); BLOOD, URINE BLOOD NEGATIVE (NEGATIVE); COLOR, URINE AMBER (YELLOW); GLUCOSE, URINE (UA) AUTO NEGATIVE (NEGATIVE); KETONE, URINE AUTO 1+ mg/dL (NEGATIVE); LEUKOCYTE ESTERASE, URINE AUTO 2+ (NEGATIVE); MUCUS, URINE LARGE (NEGATIVE); NITRITE, URINE AUTO NEGATIVE (NEGATIVE); PROTEIN, URINE AUTO 1+ mg/dL (NEGATIVE); RBC, URINE AUTO 3 /HPF (0-3); SQUAMOUS EPITHELIAL CELL UR AU 8 /HPF (0-6); UROBILINOGEN, URINE AUTO 0.2 mg/dL (0.0-2.0); WBC, URINE AUTO 7 /HPF (0-3)
== END ==
LOC: M SMT 12:59
PROVIDERS: ATTEND Nurse Practitioner Family
DX: N20.0 Calculus of kidney (principal)

== ENCOUNTER → 2020-11-17 | Outpatient (CLI) | payer BC ==
--- NOTE | 2020-11-17 17:27 | REPVR ---
PROCEDURE INFORMATION: Exam: MR Lumbar Spine Without Contrast Exam date and time: 11/17/2020 3:49 PM Age: 25 years old Clinical indication: Low back pain; Additional info: Lbp TECHNIQUE: Imaging protocol: Multiplanar magnetic resonance images of the lumbar spine without intravenous contrast. COMPARISON: CR SPINE LS COMPLETE 03/19/2018 10:50 AM FINDINGS: Vertebrae: Unremarkable. Spinal cord: Normal signal. No cord compression. L1-L2: No significant disc disease. No significant spinal canal stenosis. No neural foraminal stenosis. L2-L3: No significant disc disease. No significant spinal canal stenosis. No neural foraminal stenosis. L3-L4: No significant disc disease. No significant spinal canal stenosis. No neural foraminal stenosis. L4-L5: No significant disc disease. No significant spinal canal stenosis. No neural foraminal stenosis. L5-S1: Small posterior central focal disc bulge. No disc protrusion, nerve root impingement or spinal stenosis. Soft tissues: Unremarkable. IMPRESSION: Small disc bulge at L5-S1. No disc protrusion, nerve root impingement or spinal stenosis. Electronically signed by: Prasanna Garcia On 11/17/2020 17:26:43 PM
== END ==
LOC: M PLAIMG 15:08
PROVIDERS: ATTEND Physician Assistant
DX: M51.27 Other intervertebral disc displacement, lumbosacral region (principal)

== ENCOUNTER → 2020-12-20 | Outpatient (CLI) | payer BC ==
[2020-12-20 13:13] LABS: FREE T4 1.05 NG/DL (0.76-1.46); THYROID STIMULATING HORMONE 0.264 uIU/ML (0.358-3.740)
[2020-12-22 11:23] LABS: THYROID PEROXIDASE ANTIBODY < 28.0 U/ML (<60.0)
== END ==
LOC: M LAB 12:12
PROVIDERS: ATTEND Student in an Organized Health Care Education/Training Program
DX: R79.89 Other specified abnormal findings of blood chemistry (principal)

== ENCOUNTER → 2021-02-08 | Outpatient (CLI) | payer BC ==
[2021-02-08 09:40] LABS: BASO % 0.5 % (0.0-1.0); EOS % 0.6 % (0.0-3.0); HEMATOCRIT 43.5 % (36.0-47.0); HEMOGLOBIN 14.2 g/dl (12.0-15.5); LYMPH # 1.8 10^3/uL (1.5-5.0); LYMPH % 27.9 % (24.0-44.0); MEAN CORPUSCULAR HEMOGLOBIN 28.9 pg (27.0-33.0); MEAN CORPUSCULAR HGB CONC 32.6 g/dl (32.0-36.5); MEAN CORPUSCULAR VOLUME 88.4 fl (80.0-96.0); MONO # 0.6 10^3/uL (0.0-0.8); MONO % 8.8 % (2.0-8.0); NEUTROPHILS # 3.9 10^3/uL (1.5-8.5); NEUTROPHILS % 61.7 % (36.0-66.0); PLATELET COUNT, AUTOMATED 299 10^3/uL (150-450); RED BLOOD COUNT 4.92 10^6/uL (4.00-5.40); WHITE BLOOD COUNT 6.3 10^3/uL (4.0-10.0)
[2021-02-08 10:04] LABS: ERYTHROCYTE SEDIMENTATION RATE 2 mm/hr (0-20)
[2021-02-08 10:10] LABS: C REACTIVE PROTEIN QUANTITATIV < 0.30 MG/DL (0.00-0.30); RHEUMATOID FACTOR QUANT < 10.0 IU/ML (<15.0); URIC ACID 2.1 MG/DL (2.6-6.0)
== END ==
LOC: M LAB 08:56
PROVIDERS: ATTEND Physician Assistant
DX: M22.2X2 Patellofemoral disorders, left knee (principal)

== ENCOUNTER → 2021-02-08 | Outpatient (CLI) | payer BC ==
[2021-02-08 10:19] LABS: FREE T4 1.08 NG/DL (0.76-1.46); THYROID STIMULATING HORMONE 0.204 uIU/ML (0.358-3.740)
== END ==
LOC: M LAB 08:59
PROVIDERS: ATTEND Internal Medicine Endocrinology, Diabetes & Metabolism
DX: R94.6 Abnormal results of thyroid function studies (principal)

== ENCOUNTER → 2022-05-05 | Outpatient (REF) | payer BC ==
[2022-05-06 12:36] LABS: GC DNA AMPLIFICATION NEGATIVE (NEGATIVE)
== END ==
LOC: M PLALAB 16:38
PROVIDERS: ATTEND Advanced Practice Midwife
DX: R87.613 High grade squamous intraepithelial lesion on cytologic smear of cervix (HGSIL) (principal); Z12.4 Encounter for screening for malignant neoplasm of cervix
CPT/HCPCS: 87624; 87661; 87810; 87850; G0123

== ENCOUNTER → 2022-07-27 | Outpatient (REF) | payer BC ==
[~2022-07-27] MED LIST changes: +TOPI-254; -TOPI50TA9
== END ==
LOC: M SFHCWAGY 13:10
PROVIDERS: ATTEND Obstetrics & Gynecology
DX: R87.612 Low grade squamous intraepithelial lesion on cytologic smear of cervix (LGSIL) (principal); R10.2 Pelvic and perineal pain

== ENCOUNTER → 2022-08-02 | Outpatient (REF) | payer BC ==
[2022-08-02 21:34] LABS: APPEARANCE, URINE HAZY (CLEAR); BACTERIA, URINE AUTO NEGATIVE (NEGATIVE); BILIRUBIN, URINE AUTO NEGATIVE (NEGATIVE); BLOOD, URINE BLOOD NEGATIVE (NEGATIVE); COLOR, URINE YELLOW (YELLOW); GLUCOSE, URINE (UA) AUTO NEGATIVE (NEGATIVE); KETONE, URINE AUTO TRACE mg/dL (NEGATIVE); LEUKOCYTE ESTERASE, URINE AUTO NEGATIVE (NEGATIVE); MUCUS, URINE SMALL (NEGATIVE); NITRITE, URINE AUTO NEGATIVE (NEGATIVE); PROTEIN, URINE AUTO NEGATIVE (NEGATIVE); RBC, URINE AUTO 2 /HPF (0-3); SPECIFIC GRAVITY URINE AUTO 1.026 (1.002-1.035); SQUAMOUS EPITHELIAL CELL UR AU 2 /HPF (0-6); UROBILINOGEN, URINE AUTO 0.2 mg/dL (0.0-2.0); WBC, URINE AUTO 2 /HPF (0-3)
[2022-08-02 22:59] LABS: GC DNA AMPLIFICATION NEGATIVE (NEGATIVE)
== END ==
LOC: M LAB REF 21:16
PROVIDERS: ATTEND Physician Assistant Medical
DX: N89.8 Other specified noninflammatory disorders of vagina (principal); Z20.2 Contact with and (suspected) exposure to infections with a predominantly sexual mode of transmission

== ENCOUNTER 2022-08-27 07:23 | Day surgery (SDC) | payer BC ==
[~2022-08-27] VITALS: Ht 160 cm; Wt 49.9 kg
[2022-08-27 07:53] LABS: HEMATOCRIT 41.3 % (36.0-47.0); HEMOGLOBIN 13.9 g/dl (12.0-15.5); MEAN CORPUSCULAR HEMOGLOBIN 29.6 pg (27.0-33.0); MEAN CORPUSCULAR HGB CONC 33.7 g/dl (32.0-36.5); MEAN CORPUSCULAR VOLUME 87.9 fl (80.0-96.0); PLATELET COUNT, AUTOMATED 299 10^3/uL (150-450)
[2022-08-27] MEDS ORDERED: fentaNYL 100 MCG/2 ML INJECTION As Ordered ONE (08:16)
[2022-08-27] MEDS ORDERED: KETOROLAC 60MG 2ML VIAL As Ordered ONE (08:16)
[2022-08-27] MEDS ORDERED: ONDANSETRON 4MG 2ML VIAL As Ordered ONE (08:16)
[2022-08-27] MEDS ORDERED: propofoL 200 MG/20 ML VIAL As Ordered ONE (08:16)
[2022-08-27] MEDS ORDERED: MIDAZOLAM INJ 2MG/2ML VIAL As Ordered ONE (08:16)
[2022-08-27] MEDS ORDERED: LIDOCAINE 2% 100MG/5ML SDV (FOR ANES.) As Ordered ONE (08:16)
[2022-08-27 08:22] LABS: BLOOD UREA NITROGEN 7 MG/DL (9-23); CALCIUM LEVEL 8.7 MG/DL (8.5-10.1); CARBON DIOXIDE LEVEL 28 MMOL/L (20-31); CHLORIDE LEVEL 109 MMOL/L (98-107); CREATININE FOR GFR 0.78 MG/DL (0.55-1.30); GLOMERULAR FILTRATION RATE > 60.0 (>60); GLUCOSE, FASTING 87 MG/DL (60-100); POTASSIUM SERUM 4.3 MMOL/L (3.5-5.1); SODIUM LEVEL 142 MMOL/L (136-145)
[2022-08-27] MEDS ORDERED: LIDOCAINE W/EPINEPHRINE 1% 20ML VIAL As Ordered ONE (09:43)
[2022-08-27] MEDS ORDERED: SILVER NITRATE APPLICATOR (1 = QTY 10) As Ordered ONE (09:43)
[2022-08-27] MEDS ORDERED: oxyCODONE 5MG TAB PO PRN (10:25)
[2022-08-27] MEDS ORDERED: HYDROMORPHONE HCL 0.5 MG/ 0.5 ML SYRINGE IV PRN (10:25)
[2022-08-27] MEDS ORDERED: fentaNYL 100 MCG/2 ML INJECTION IV PRN (10:25)
[2022-08-27] MEDS ORDERED: LR 1,000 ML IV SCH (10:25)
[2022-08-27] MEDS ORDERED: ONDANSETRON 4MG 2ML VIAL IV PRN (10:25)
[2022-08-27 11:00] VITALS: BP 101/49
== END 2022-08-27 11:30 | disposition home or self-care (01) ==
LOC: M SDC 07:23
PROVIDERS: ATTEND Obstetrics & Gynecology
DX: N87.1 Moderate cervical dysplasia (principal); G43.909 Migraine, unspecified, not intractable, without status migrainosus; F41.9 Anxiety disorder, unspecified; F32.A Depression, unspecified; F12.10 Cannabis abuse, uncomplicated; E05.90 Thyrotoxicosis, unspecified without thyrotoxic crisis or storm
CPT/HCPCS: 36415; 57522; 80048; 81025; 85027; 86850; 86900; 86901; 88305; 88307; J1100; J1885; J2250; J2405; J3010

== ENCOUNTER → 2023-03-18 | Outpatient (REF) | payer BC ==
[~2023-03-18] MED LIST changes: +TOPI-21; -TOPI-254
== END ==
LOC: M LAB REF 19:44
PROVIDERS: ATTEND Physician Assistant
DX: R30.0 Dysuria (principal)

== ENCOUNTER → 2023-04-13 | Outpatient (CLI) | payer BC ==
[2023-04-13 15:36] LABS: BASO % 0.4 % (0.0-1.0); EOS % 0.5 % (0.0-3.0); HEMATOCRIT 43.9 % (36.0-47.0); HEMOGLOBIN 14.9 g/dl (12.0-15.5); LYMPH # 2.3 10^3/uL (1.5-5.0); LYMPH % 29.5 % (24.0-44.0); MEAN CORPUSCULAR HEMOGLOBIN 30.3 pg (27.0-33.0); MEAN CORPUSCULAR HGB CONC 33.9 g/dl (32.0-36.5); MEAN CORPUSCULAR VOLUME 89.2 fl (80.0-96.0); MONO # 0.6 10^3/uL (0.0-0.8); MONO % 6.9 % (2.0-8.0); NEUTROPHILS % 62.4 % (36.0-66.0); PLATELET COUNT, AUTOMATED 405 10^3/uL (150-450); RED BLOOD COUNT 4.92 10^6/uL (4.00-5.40); WHITE BLOOD COUNT 7.9 10^3/uL (4.0-10.0)
[2023-04-13 15:58] LABS: HEMOGLOBIN A1c 4.8 % (4.0-6.0)
[2023-04-13 16:07] LABS: ALBUMIN 4.7 G/DL (3.2-5.2); ALKALINE PHOSPHATASE 61 U/L (46-116); ALT/SGPT 22 U/L (7.0-40); AST/SGOT 13 U/L (<34); BLOOD UREA NITROGEN 10 MG/DL (9-23); CALCIUM LEVEL 9.8 MG/DL (8.5-10.1); CARBON DIOXIDE LEVEL 26 MMOL/L (20-31); CHLORIDE LEVEL 109 MMOL/L (98-107); CREATININE FOR GFR 0.68 MG/DL (0.55-1.30); GLOMERULAR FILTRATION RATE > 60.0 (>60); GLUCOSE, FASTING 80 MG/DL (60-100); MAGNESIUM LEVEL 2.3 MG/DL (1.8-2.4); POTASSIUM SERUM 4.6 MMOL/L (3.5-5.1); SODIUM LEVEL 143 MMOL/L (136-145); TOTAL PROTEIN 7.3 G/DL (5.7-8.2)
[2023-04-13 16:08] LABS: FREE T4 1.48 NG/DL (0.89-1.76)
[2023-04-13 16:09] LABS: THYROID STIMULATING HORMONE 0.514 uIU/ML (0.55-4.78)
[2023-04-13 17:27] LABS: APPEARANCE, URINE CLEAR (CLEAR); BACTERIA, URINE AUTO 1+ (NEGATIVE); BILIRUBIN, URINE AUTO NEGATIVE (NEGATIVE); BLOOD, URINE BLOOD NEGATIVE (NEGATIVE); COLOR, URINE STRAW (YELLOW); GLUCOSE, URINE (UA) AUTO NEGATIVE (NEGATIVE); KETONE, URINE AUTO NEGATIVE (NEGATIVE); LEUKOCYTE ESTERASE, URINE AUTO 1+ (NEGATIVE); NITRITE, URINE AUTO NEGATIVE (NEGATIVE); PROTEIN, URINE AUTO NEGATIVE (NEGATIVE); RBC, URINE AUTO 0 /HPF (0-3); SPECIFIC GRAVITY URINE AUTO 1.006 (1.002-1.035); SQUAMOUS EPITHELIAL CELL UR AU 3 /HPF (0-6); UROBILINOGEN, URINE AUTO 0.2 mg/dL (0.0-2.0); WBC, URINE AUTO 2 /HPF (0-3)
== END ==
LOC: M PLALAB 12:44
PROVIDERS: ATTEND Physician Assistant
DX: Z00.00 Encounter for general adult medical examination without abnormal findings (principal); F32.A Depression, unspecified; R35.0 Frequency of micturition

== ENCOUNTER → 2023-05-03 | Outpatient (REF) | payer BC | LOC: M SFHCLERA 20:45 | PROVIDERS: ATTEND Physician Assistant | DX: Z00.00 Encounter for general adult medical examination without abnormal findings (principal); F32.A Depression, unspecified; R35.0 Frequency of micturition; Z53.8 Procedure and treatment not carried out for other reasons ==

== ENCOUNTER → 2023-06-14 | Outpatient (CLI) | payer BC ==
[2023-06-14 16:28] LABS: BASO % 0.5 % (0.0-1.0); EOS # 0.1 10^3/uL (0.0-0.5); EOS % 1.9 % (0.0-3.0); HEMATOCRIT 44.2 % (36.0-47.0); HEMOGLOBIN 14.5 g/dl (12.0-15.5); LYMPH # 2.3 10^3/uL (1.5-5.0); LYMPH % 36.3 % (24.0-44.0); MEAN CORPUSCULAR HEMOGLOBIN 29.3 pg (27.0-33.0); MEAN CORPUSCULAR HGB CONC 32.8 g/dl (32.0-36.5); MEAN CORPUSCULAR VOLUME 89.3 fl (80.0-96.0); MONO # 0.6 10^3/uL (0.0-0.8); MONO % 9.1 % (2.0-8.0); NEUTROPHILS # 3.3 10^3/uL (1.5-8.5); PLATELET COUNT, AUTOMATED 369 10^3/uL (150-450); RED BLOOD COUNT 4.95 10^6/uL (4.00-5.40); WHITE BLOOD COUNT 6.3 10^3/uL (4.0-10.0)
[2023-06-14 16:36] LABS: FREE T4 1.52 NG/DL (0.89-1.76)
[2023-06-14 16:37] LABS: THYROID STIMULATING HORMONE 0.426 uIU/ML (0.55-4.78); TOTAL 25(OH) VITAMIN D 8.9 NG/ML (20.0-100.0)
[2023-06-14 16:41] LABS: AMORPHOUS SEDIMENT SMALL (NEGATIVE); APPEARANCE, URINE CLOUDY (CLEAR); BACTERIA, URINE AUTO NEGATIVE (NEGATIVE); BILIRUBIN, URINE AUTO NEGATIVE (NEGATIVE); BLOOD, URINE BLOOD NEGATIVE (NEGATIVE); COLOR, URINE YELLOW (YELLOW); GLUCOSE, URINE (UA) AUTO NEGATIVE (NEGATIVE); KETONE, URINE AUTO NEGATIVE (NEGATIVE); LEUKOCYTE ESTERASE, URINE AUTO 1+ (NEGATIVE); MUCUS, URINE SMALL (NEGATIVE); NITRITE, URINE AUTO NEGATIVE (NEGATIVE); PROTEIN, URINE AUTO 1+ mg/dL (NEGATIVE); RBC, URINE AUTO 4 /HPF (0-3); SPECIFIC GRAVITY URINE AUTO 1.018 (1.002-1.035); SQUAMOUS EPITHELIAL CELL UR AU 6 /HPF (0-6); UROBILINOGEN, URINE AUTO 0.2 mg/dL (0.0-2.0); WBC, URINE AUTO 23 /HPF (0-3)
[2023-06-14 16:57] LABS: ALBUMIN 4.5 G/DL (3.2-5.2); ALKALINE PHOSPHATASE 56 U/L (46-116); ALT/SGPT 13 U/L (7.0-40); AST/SGOT 10 U/L (<34); BLOOD UREA NITROGEN 8 MG/DL (9-23); CALCIUM LEVEL 9.1 MG/DL (8.5-10.1); CARBON DIOXIDE LEVEL 27 MMOL/L (20-31); CHLORIDE LEVEL 110 MMOL/L (98-107); CREATININE FOR GFR 0.78 MG/DL (0.55-1.30); GLOMERULAR FILTRATION RATE > 60.0 (>60); GLUCOSE, FASTING 91 MG/DL (60-100); MAGNESIUM LEVEL 2.3 MG/DL (1.8-2.4); POTASSIUM SERUM 4.2 MMOL/L (3.5-5.1); SODIUM LEVEL 142 MMOL/L (136-145); THYROID PEROXIDASE ANTIBODY 38 U/ML (<60.0); TOTAL PROTEIN 6.9 G/DL (5.7-8.2)
[2023-06-14 17:26] LABS: HEMOGLOBIN A1c 4.6 % (4.0-6.0)
== END ==
LOC: M WUC 10:55
PROVIDERS: ATTEND Physician Assistant
DX: Z00.00 Encounter for general adult medical examination without abnormal findings (principal); F32.A Depression, unspecified; R35.0 Frequency of micturition; E05.90 Thyrotoxicosis, unspecified without thyrotoxic crisis or storm

== ENCOUNTER → 2023-06-30 | Outpatient (CLI) | payer BC | LOC: M RAD 12:53 | PROVIDERS: ATTEND Physician Assistant | DX: E05.21 Thyrotoxicosis with toxic multinodular goiter with thyrotoxic crisis or storm (principal) ==

== ENCOUNTER → 2023-11-02 | Outpatient (REF) | payer BC ==
[~2023-11-02] MED LIST changes: +ONDA-282 PO; -ONDA4TAB6 PO
[2023-11-02 20:31] LABS: Trichomonas vaginalis (AMP) NOT DETECTED (NEGATIVE)
[2023-11-02 20:55] LABS: GC DNA AMPLIFICATION NEGATIVE (NEGATIVE)
== END ==
LOC: M PLALAB 15:00
PROVIDERS: ATTEND Obstetrics & Gynecology
DX: R87.612 Low grade squamous intraepithelial lesion on cytologic smear of cervix (LGSIL) (principal); R87.613 High grade squamous intraepithelial lesion on cytologic smear of cervix (HGSIL)

== ENCOUNTER → 2023-11-07 | Outpatient (CLI) | payer BC ==
[2023-11-07 12:48] LABS: HEPATITIS B SURFACE ANTIGEN NEGATIVE (NEGATIVE)
[2023-11-07 13:00] LABS: HIV 1&2 SCREEN NEGATIVE (NEGATIVE)
[2023-11-07 13:09] LABS: HEPATITIS C VIRUS ABY INDEX < 0.02 INDEX (<0.8)
[2023-11-07 13:10] LABS: HEPATITIS B CORE ANTIBODY IGM NEGATIVE (NEGATIVE)
== END ==
LOC: M PLALAB 08:32
PROVIDERS: ATTEND Obstetrics & Gynecology
DX: Z20.2 Contact with and (suspected) exposure to infections with a predominantly sexual mode of transmission (principal); R87.810 Cervical high risk human papillomavirus (HPV) DNA test positive; Z30.42 Encounter for surveillance of injectable contraceptive

== ENCOUNTER 2024-03-09 10:22 | Day surgery (SDC) | payer BC ==
[~2024-03-09] VITALS: Ht 160 cm; Wt 48.5 kg
[~2024-03-09 10:22] MED LIST changes: +GABA-1172; -GABA-282; +KETOROLAC 60MG 2ML VIAL As Ordered ONE; +LIDOCAINE 2% 100MG/5ML SDV (FOR ANES.) As Ordered ONE; +MIDAZOLAM INJ 2MG/2ML VIAL As Ordered ONE; +fentaNYL 100 MCG/2 ML INJECTION As Ordered ONE; +propofoL 200 MG/20 ML VIAL As Ordered ONE
[2024-03-09 11:09] LABS: HEMATOCRIT 39.3 % (36.0-47.0); HEMOGLOBIN 13.1 g/dl (12.0-15.5); MEAN CORPUSCULAR HEMOGLOBIN 30.1 pg (27.0-33.0); MEAN CORPUSCULAR HGB CONC 33.3 g/dl (32.0-36.5); MEAN CORPUSCULAR VOLUME 90.3 fl (80.0-96.0); PLATELET COUNT, AUTOMATED 360 10^3/uL (150-450); RED BLOOD COUNT 4.35 10^6/uL (4.00-5.40); WHITE BLOOD COUNT 6.8 10^3/uL (4.0-10.0)
[2024-03-09] MEDS ORDERED: ONDANSETRON 4MG 2ML VIAL As Ordered ONE (11:23)
[2024-03-09 11:42] LABS: ALBUMIN 4.3 G/DL (3.2-5.2); ALKALINE PHOSPHATASE 53 U/L (35-104); ALT/SGPT 17 U/L (7.0-40); AST/SGOT < 8 U/L (<34); BILIRUBIN,TOTAL 0.9 MG/DL (0.3-1.2); BLOOD UREA NITROGEN 17 MG/DL (9-23); CARBON DIOXIDE LEVEL 27 MMOL/L (20-31); CHLORIDE LEVEL 110 MMOL/L (98-107); CREATININE FOR GFR 0.74 MG/DL (0.55-1.30); GLOMERULAR FILTRATION RATE > 60.0 (>60); GLUCOSE, FASTING 85 MG/DL (60-100); POTASSIUM SERUM 4.5 MMOL/L (3.5-5.1); SODIUM LEVEL 143 MMOL/L (136-145); TOTAL PROTEIN 6.8 G/DL (5.7-8.2)
[2024-03-09] MEDS: IODINE STRONG SOLN 15ML BTL As Ordered ONE (12:44)
[2024-03-09] MEDS: LIDOCAINE W/EPINEPHRINE 1% 20ML VIAL As Ordered ONE (12:50)
[2024-03-09 13:10] VITALS: BP 109/61; TEMP 97.4; O2SAT 96
== END 2024-03-09 13:57 | disposition home or self-care (01) ==
LOC: M SDC 10:22
PROVIDERS: ATTEND Obstetrics & Gynecology
DX: N87.1 Moderate cervical dysplasia (principal); E05.90 Thyrotoxicosis, unspecified without thyrotoxic crisis or storm; K58.9 Irritable bowel syndrome, unspecified; F17.290 Nicotine dependence, other tobacco product, uncomplicated; Z79.3 Long term (current) use of hormonal contraceptives
CPT/HCPCS: 36415; 57522; 80053; 81025; 85027; 86850; 86900; 86901; 88307; J1885; J2250; J2405; J3010

== ENCOUNTER 2024-04-14 21:34 | Emergency (ER) | payer BC ==
[~2024-04-14] VITALS: Ht 160 cm; Wt 46.7 kg
[~2024-04-14 21:34] MED LIST changes: -KETOROLAC 60MG 2ML VIAL As Ordered ONE; -LIDOCAINE 2% 100MG/5ML SDV (FOR ANES.) As Ordered ONE; -MIDAZOLAM INJ 2MG/2ML VIAL As Ordered ONE; -fentaNYL 100 MCG/2 ML INJECTION As Ordered ONE; -propofoL 200 MG/20 ML VIAL As Ordered ONE
[2024-04-14 21:40] VITALS: BP 122/86; TEMP 97.3; O2SAT 100
[2024-04-14] MEDS ORDERED: IBUP200T46 PO (21:54)
[2024-04-14] MEDS ORDERED: ACET-907 PO (21:54)
[2024-04-14 23:31] LABS: BASO % 0.3 % (0.0-1.0); EOS % 0.3 % (0.0-3.0); LYMPH # 1.2 10^3/uL (1.5-5.0); LYMPH % 16.9 % (24.0-44.0); MEAN CORPUSCULAR HEMOGLOBIN 29.7 pg (27.0-33.0); MEAN CORPUSCULAR HGB CONC 34.1 g/dl (32.0-36.5); MONO # 0.5 10^3/uL (0.0-0.8); MONO % 7.1 % (2.0-8.0); NEUTROPHILS # 5.2 10^3/uL (1.5-8.5); NEUTROPHILS % 75.1 % (36.0-66.0); PLATELET COUNT, AUTOMATED 360 10^3/uL (150-450); RED BLOOD COUNT 4.71 10^6/uL (4.00-5.40); WHITE BLOOD COUNT 6.9 10^3/uL (4.0-10.0)
[2024-04-14 23:37] LABS: ERYTHROCYTE SEDIMENTATION RATE < 1 mm/hr (0-20)
[2024-04-15 00:14] LABS: C REACTIVE PROTEIN QUANTITATIV < 0.50 MG/DL (<1.0)
[2024-04-15 00:16] LABS: ALKALINE PHOSPHATASE 55 U/L (35-104); ALT/SGPT 15 U/L (7.0-40); AST/SGOT 19 U/L (<34); BILIRUBIN,DIRECT 0.3 MG/DL (<0.4); BLOOD UREA NITROGEN 17 MG/DL (9-23); CALCIUM LEVEL 9.4 MG/DL (8.5-10.1); CARBON DIOXIDE LEVEL 22 MMOL/L (20-31); CHLORIDE LEVEL 108 MMOL/L (98-107); CREATININE FOR GFR 0.65 MG/DL (0.55-1.30); GLOMERULAR FILTRATION RATE > 60.0 (>60); GLUCOSE, FASTING 102 MG/DL (60-100); POTASSIUM SERUM 3.8 MMOL/L (3.5-5.1); SODIUM LEVEL 143 MMOL/L (136-145); TOTAL PROTEIN 7.5 G/DL (5.7-8.2)
[2024-04-15 00:31] LABS: HCG, SERUM QUALITATIVE NEGATIVE (NEGATIVE)
[2024-04-15] MEDS ORDERED: AMOX875T2 PO (09:15)
== END 2024-04-15 00:43 | disposition left against medical advice (07) ==
LOC: M ED 21:34
DX: Z53.21 Procedure and treatment not carried out due to patient leaving prior to being seen by health care provider (principal)

== ENCOUNTER 2024-04-15 08:30 | Emergency (ER) | payer BC ==
[~2024-04-15] VITALS: Ht 160 cm; Wt 46.5 kg
[~2024-04-15 08:30] MED LIST changes: +ACET-907 PO; +IBUP200T46 PO
[2024-04-15] MEDS ORDERED: AMOX875T2 PO (09:15)
[2024-04-15] MEDS: AUGMENTIN 875 MG TAB PO ONE (09:26)
[2024-04-15 09:57] VITALS: BP 122/84; TEMP 99.3; O2SAT 100
== END 2024-04-15 09:59 | disposition home or self-care (01) ==
LOC: M ED 08:30
DX: K02.9 Dental caries, unspecified (principal); K08.89 Other specified disorders of teeth and supporting structures; Z79.1 Long term (current) use of non-steroidal anti-inflammatories (NSAID); Z79.2 Long term (current) use of antibiotics